=== PATIENT | female | born 2000 | race Caucasian/White ===

== ENCOUNTER 2020-10-21 11:10 | Emergency (ER) | payer OTHER ==
[~2020-10-21] VITALS: Ht 152.4 cm; Wt 49.9 kg
[2020-10-21 11:16] VITALS: BP 136/103
--- NOTE | 2020-10-21 11:20 | NUR ---
PATIENT AMBULATED TO BED 9
--- NOTE | 2020-10-21 11:43 | NUR ---
RAD AT BEDSIDE
--- NOTE | 2020-10-21 12:00 | NUR ---
20 YEAR OLD FEMALE AMBULATED IN WITH UPRIGHT STEADY GAIT, C/O COUGH X 3-5 DAYS, KEEPS HER AWAKE AT NIGHT. RESP ARE EVEN AND UNLABORED, SAO2 100% ON ROOM AIR, FAINT INSPIRATORY WHEEZES AUSCULTATED THROUGHOUT, DECREASED WITH COUGH. SKIN WARM AND DRY, DENIES FEVER, NAUSEA, VOMITING OR DIARRHEA, ABDOMEN SOFT AND NON DISTENDED. PATIENT HAS BEEN VACCINATED FOR COVID 19. REPORTS A HISTORY OF CHILDHOOD ASTHMA, RESOLVED. BED IN LOWEST POSITION, LOCKED, BED RAIL UPX1.
--- NOTE | 2020-10-21 12:13 | NUR ---
Note jose angel in EDM - 10/21/20 at 1213 by MARISOL 20 YEAR OLD FEMALE AMBULATED IN WITH UPRIGHT STEADY GAIT, C/O COUGH X 3-5 DAYS, KEEPS HER AWAKE AT NIGHT. RESP ARE EVEN AND UNLABORED, SAO2 100% ON ROOM AIR, FAINT INSPIRATORY WHEEZES AUSCULTATED THROUGHOUT, DECREASED WITH COUGH. SKIN WARM AND DRY, DENIES FEVER, NAUSEA, VOMITING OR DIARRHEA, ABDOMEN SOFT AND NON DISTENDED. PATIENT HAS BEEN VACCINATED FOR COVID 19. REPORTS A HISTORY OF CHILDHOOD ASTHMA, RESOLVED. BED IN LOWEST POSITION, LOCKED, BED RAIL UPX1.
[2020-10-21] MEDS ORDERED: BENZ-196 PO (12:35)
[2020-10-21 12:48] VITALS: BP 136/103
--- NOTE | 2020-10-21 12:48 | NUR ---
RADHA NOVEL SAMPLE COLLECTED AND WALKED TO LAB
--- NOTE | 2020-10-21 12:49 | NUR ---
DPatient discharged with v/s stable. Written and verbal after care instructions MEDICATION AND UPPER RESPIRATORY INFECTION given and explained. Patient alert, oriented and verbalized understanding of instructions. Ambulatory with steady gait. All questions addressed prior to discharge. ID band removed. Patient advised to follow up with PMD. Rx of BENZONATATE (TESSALON PERLE) given. Patient educated on indication of medication including possible reaction and side effects. Opportunity to ask questions provided and answered.
== END 2020-10-21 12:49 | disposition home or self-care (01) ==
LOC: MED 11:10
DX: J06.9 Acute upper respiratory infection, unspecified (principal); Z20.822 Contact with and (suspected) exposure to COVID-19; J45.909 Unspecified asthma, uncomplicated; Z88.0 Allergy status to penicillin
CPT/HCPCS: 71045; 99284; U0003